=== PATIENT | male | born 1960 | race Caucasian/White ===

== ENCOUNTER 2017-11-04 13:06 | Day surgery (SDC) | payer OTHER, MEDICARE ==
[~2017-11-04] VITALS: Ht 180.3 cm; Wt 118.0 kg
[2017-11-04] MEDS ORDERED: IOHEXOL 350 MG/ML 50 ML BTL (for Cath Lab) OTHER ONE (13:07)
[2017-11-04 13:51] VITALS: BP 123/68; PULSE 68; RESP 16; TEMP 98.1; O2SAT 97
[2017-11-04] MEDS ORDERED: SODIUM BICARBONATE 100 MEQ in D5W 1000 ML IV SCH (14:15)
[2017-11-04] MEDS ORDERED: METO50TA PO (14:22)
[2017-11-04] MEDS ORDERED: PLAV75TA29 PO (14:22)
[2017-11-04] MEDS ORDERED: STATIN PO (14:22)
[2017-11-04] MEDS ORDERED: ASPI-516 CHEW (14:22)
[2017-11-04] MEDS ORDERED: HYDR-3583 PO (14:22)
[2017-11-04] MEDS ORDERED: CLON1TAB PO (14:22)
[2017-11-04 14:27] LABS: CREATININE 1.29 MG/DL (0.60-1.30)
[2017-11-04] MEDS ORDERED: HEPARIN-NS/PF FLUSH BAG 1,000 ML IV FLUSH ONE (15:49)
--- NOTE | 2017-11-04 15:50 | HHI.HP ---
History of Present Illness Chief Complaint: L LE tissue loss History of Present Illness 57 yo male with failed stents and now failed L LE bypass, has tissue loss and likely needs amputation Past/Family/Social History Past Medical History HTN XOL PAD Past Surgical History L LE bypass Social History former smoker Family History NC Home Medications Reported Medications Clonazepam (Clonazepam) 1 Mg Tab, PO HS, #60 TAB 0 Refills 11/04/17 Clopidogrel (Plavix) 75 Mg Tab, 75 MG PO DAILY for Blood Clot Prevention, #30 TAB 0 Refills 11/04/17 Aspirin (Aspirin) 81 Mg Chew, 81 MG CHEW DAILY, TAB 0 Refills 11/04/17 [Statin] No Conflict Check, PO HS 11/04/17 Hydrocodone-Acetaminophen (Hydrocodone-Acetaminophen) 10-325 mg Tab, 1 TAB PO Q6H Y for PAIN, TAB 0 Refills 11/04/17 Metoprolol Tartrate (Metoprolol Tartrate) 50 Mg Tab, 25 MG PO BID, #60 TAB 0 Refills 11/04/17 Coded Allergies: No Known Allergies (Unverified , 11/04/17) Review of Systems Constitutional: DENIES: Diaphoretic episodes, Fatigue, Fever, Weight gain, Weight loss, Chills, Dizziness, Change in appetite, Night Sweats Physical Exam Vitals/I&O Date Time Temp Pulse Resp B/P (MAP) Pulse Ox O2 Delivery O2 Flow Rate FiO2 11/04/17 13:51 98.1 68 16 123/68 (86) 97 Neuro: alert, no distress HEENT: NC/AT Neck: no JVD Heart: reg rate Lungs: clear B Vascular: nonpalpable L pedal pulses Extremities: wounds L LE Laboratory Tests Test 11/04/17 13:50 Creatinine 1.29 Estimat Glomerular Filtration Rate 57 Caprini VTE Risk Assessment Caprini VTE Risk Assessment: No/Low Risk (score <= 1) Caprini Risk Assessment Model Point Value = 1 Point Value = 2 Point Value = 3 Point Value = 5 Age 41-60 Minor surgery BMI > 25 kg/m2 Swollen legs Varicose veins or History of unexplained or recurrent spontaneous Oral contraceptives or hormone replacement Sepsis (< 1 month) Serious lung disease, including pneumonia (< 1 month) Abnormal pulmonary function Acute myocardial infarction Congestive heart failure (< 1 month) History of inflammatory bowel disease Medical patient at bed rest Age 61-74 Arthroscopic surgery Major open surgery (> 45 min) Laparoscopic surgery (> 45 min) Malignancy Confined to bed (> 72 hours) Immobilizing plaster cast Central venous access Age >= 75 History of VTE Family history of VTE Factor V Leiden Prothrombin 55960E Lupus anticoagulant Anticardiolipin antibodies Elevated serum homocysteine Heparin-induced thrombocytopenia Other congenital or acquired thrombophilia Stroke (< 1 month) Elective arthroplasty Hip, pelvis, or leg fracture Acute spinal cord injury (< 1 month) Prophylaxis Regimen Total Risk Factor Score Risk Level Prophylaxis Regimen 0-1 Low Early ambulation 2 Moderate Order ONE of the following: *Sequential Compression Device (SCD) *Heparin 5000 units SQ BID 3-4 Higher Order ONE of the following medications: *Heparin 5000 units SQ TID *Enoxaparin/Lovenox 40 mg SQ daily (WT < 150 kg, CrCl > 30 mL/min) *Enoxaparin/Lovenox 30 mg SQ daily (WT < 150 kg, CrCl > 10-29 mL/min) *Enoxaparin/Lovenox 30 mg SQ BID (WT < 150 kg, CrCl > 30 mL/min) AND/OR *Sequential Compression Device (SCD) 5 or more Highest Order ONE of the following medications: *Heparin 5000 units SQ TID (Preferred with Epidurals) *Enoxaparin/Lovenox 40 mg SQ daily (WT < 150 kg, CrCl > 30 mL/min) *Enoxaparin/Lovenox 30 mg SQ daily (WT < 150 kg, CrCl > 10-29 mL/min) *Enoxaparin/Lovenox 30 mg SQ BID (WT < 150 kg, CrCl > 30 mL/min) AND *Sequential Compression Device (SCD) Assessment and Plan Plan L LE angiogram anticipate d/c today Ruperto Quintanilla MD Nov 04, 2017 15:50
[2017-11-04] MEDS ORDERED: MIDAZOLAM HCL 2 MG/2 ML VIAL ONE ×3 (15:52→16:15)
--- NOTE | 2017-11-04 16:26 | HHI.PR ---
cc: Ruperto Quintanilla MD Immediate Post Op Note Procedure Date: Nov 04, 2017 Pre Op Diagnosis: L LE tissue loss, PAD Post Op Diagnosis: same Surgeon: Ruperto Quintanilla Household Refrigeration Mechanic(s): none Procedure: L LE angiogram Findings: occluded bypass patent profunda Complications: none Specimen(s) removed: none Estimated blood loss: 10mL Anesthesia: MAC Drains: None Patient to: Other (DOCU) Patient Condition: Good Date/Time of Procedure: SEE SURGICAL CARE RECORD Ruperto Quintanilla MD Nov 04, 2017 16:25
--- NOTE | 2017-11-04 16:33 | CATHPROC ---
[employer] HIS Report Study Information Study Number Admission Scheduled Start Study Start [id number] Nov 04 2017 1:06PM 11/04/2017 Nov 04 2017 3:46PM [place] [facility] Cath Endovascular Study Admit Source Facility Department Other [facility] - Class B Truck Driver Physician and Clinical Staff Initial Ruperto Hodges Emergency Services Professional Hank Capellan,RN Recorder David Beth,RT(R) ScrRadha BushRT(R) (BS) Equipment Time Envelope Stamping Machine Operator Description Size Mfg Part Number Used/Scraped [id number] 15:58 ANGIO-DYNAMICS OMNI FLUSH 65CM CATHETER FR 4 Used *[id number] INTRODUCER SET, 15:58 [employer] FR 5 [id number] *[id number] Used MICROPUNCTURE, STIFFENED [id number] 15:58 K[employer] PACK, CCL CUSTOM * Used *[id number] 15:58 [employer] MEDICAL PRESSURE TUBING 48" 48" [id number] Used [id number] 15:58 NAMIC TUBING, HIGH PRESSURE 20" 20" Used *[id number] TUBING, PRESSURE INJECTION [id number] 15:58 NAMIC PACER 72" Used 72" *[id number] 15:58 NYCOMED OMNIPAQUE, 300 MG, 150ML 150ML [id number] Used 15:58 NYCOMED OMNIPAQUE, 300 MG, 50ML 50ML [id number] Used [id number] 15:58 [employer] BLANKET,WARM AIR CCL * Used *[id number] 15:58 TERUMO MEDICAL SHEATH, FR4 TERUMO (10CM) FR 4 Used *[id number] 15:58 [employer] MEDICAL SHEATH, FR4 TERUMO (10CM) FR 4 Used *[id number] WIRE, ANGLED GLIDE .035 [id number] 15:58 TERUMO MEDICAL/ASHLYN 260CM Used 260CM *[id number] Labs Creatinine (mg/dl) 0.50-1.30 1.2 Medication Medication Total Dose (Bolus/Oral) Medication Total Dosage/Unit 1% XYLOCAINE 50 mL FENTANYL 200 mcg VERSED 5 mg Medications (Bolus/Oral) Medication Time Given Dosage/Unit Administered By Reason VERSED 11/04/2017 3:58:54 PM 1 mg Hank Capellan 1 mg VERSED given in lab by Hank Capellan, RN via Peripheral IV. Ordered by Ruperto Quintanilla. FENTANYL 11/04/2017 3:59:24 PM 50 mcg Ferlitto, Hank 50 mcg FENTANYL given in lab by Hank Capellan RN via Peripheral IV. Ordered by Ruperto Quintanilla. 1% XYLOCAINE 11/04/2017 4:00:45 PM 20 mL Ruperto Quintanilla 20 mL 1% XYLOCAINE given in lab by Ruperto Quintanilla in Right Groin via Subcutaneous. Ordered by Ruperto Quintanilla. VERSED 11/04/2017 4:02:24 PM 1 mg Ferlitto, Hank 1 mg VERSED given in lab by Hank Capellan RN via Peripheral IV. Ordered by Ruperto Quintanilla. FENTANYL 11/04/2017 4:03:20 PM 50 mcg Ferlitto, Hank 50 mcg FENTANYL given in lab by Hank Capellan RN via Peripheral IV. Ordered by Ruperto Quintanilla. VERSED 11/04/2017 4:07:41 PM 1 mg Ferlitto, Hank 1 mg VERSED given in lab by Hank Capellan RN via Peripheral IV. Ordered by Ruperto Quintanilla. 1% XYLOCAINE 11/04/2017 4:08:25 PM 10 mL Ruperto Quintanilla 10 mL 1% XYLOCAINE given in lab by Ruperto Quintanilla in Right Groin via Subcutaneous. Ordered by Ruperto Quintanilla. VERSED 11/04/2017 4:10:23 PM 1 mg Ferlitto, Hank 1 mg VERSED given in lab by Hank Capellan RN via Peripheral IV. Ordered by Ruperto Quintanilla. 1% XYLOCAINE 11/04/2017 4:10:48 PM 20 mL Ruperto Quintanilla 20 mL 1% XYLOCAINE given in lab by Ruperto Quintanilla in Left Groin via Subcutaneous. Ordered by Ruperto Quintanilla. FENTANYL 11/04/2017 4:11:35 PM 50 mcg Ferlitto, Hank 50 mcg FENTANYL given in lab by Hank Capellan RN via Peripheral IV. Ordered by Ruperto Quintanilla. FENTANYL 11/04/2017 4:15:34 PM 50 mcg Ferlitto, Hank 50 mcg FENTANYL given in lab by Hank Capellan RN via Peripheral IV. Ordered by Ruperto Quintanilla. VERSED 11/04/2017 4:16:10 PM 1 mg Hank Capellan 1 mg VERSED given in lab by Hank Capellan, RN via Peripheral IV. Ordered by Ruperto Quintanilla. Medication (Drip) Medication Time Given Dosage/Unit Concentration/Unit Diluent (ml) Solution IV Solutions 11/04/2017 3:56:19 PM 0 mL (IV) 500 NaCl .9 Patient arrived on IV Solutions given by Ruperto Quintanilla in Left Antecubital via Peripheral IV. Pump/D rip Flow = 20 ml/hr using NaCl .9. Ordered by Ruperto Quintanilla. Initial Case Assessment Cardiovascular HR Rhythm NIBP Chest Pain 86 sr 139/86 0 Edema Present Skin color Skin None Normal Warm Dry Circulatory - Right Pulses Femoral 1 Scale (0,1,2,3,4,d) Circulatory - Left Pulses Femoral 1 Scale (0,1,2,3,4,d) Neurological State Oriented to time-place- Alert Moves all extremities person Respiration - General Respiration Rate SpO2 (%) O2 (lpm) (B/min) 18 99 0 Chronological Log Time Study Chronological Log 15:45:48 Patient arrived via Bed. 15:45:49 Patient Name, D.O.B, / Armband Verified By R.N. 15:45:50 Consent signed by the physician and the patient and verified by the Class B Truck Driver staff. 15:45:52 Pre-op and post- op instructions given; patient acknowledges understanding of instructions. 15:49:28 Reference ECG taken Vitals capture started with the following parameters, Patient=Adult, Interval=5 min, Initial Pr qahlav=829 mmHg, 15:53:23 Deflation Rate=5 mmHg, Cuff placed on Right Ankle 15:54:01 HR=65 bpm, TABH=234/86 mmhg, JeL7=161.0 %, Resp=9 B/min, Marcano=2 15:54:26 Reference ECG taken 15:55:26 Presedation assessment performed by Class B Truck Driver RN. 15:55:34 Patient has been NPO for More than 6Hrs. 15:56:06 A # 20 IV was noted in the Hand (left). Grade = 0 Patient arrived on IV Solutions given by Ruperto Quintanilla in Left Antecubital via Peripheral IV. Pump/Drip Flow = 20 ml/hr 15:56:19 using NaCl .9. Ordered by Ruperto Quintanilla. 15:56:35 History and physical on the chart or being dictated. Assessment: Initial Case, HR=86 BPM, Rhythm=sr, VLHS=707/86 mmhg, Chest Pain=0, Edema=None, Col or=Normal, Skin = Warm, Dry Right Pulses: Femoral=1 15:56:39 Left Pulses: Femoral=1 Neurological: State=Alert, Ox3, IRBY Respiration: Resp=18 B/min, SpO2=99 %, O2=0 lpm 15:57:11 Bilateral groins prepped with 2% chlorhexidine, and draped after a 3 minute waiting time. 15:58:54 1 mg VERSED given in lab by Hank Capellan RN via Peripheral IV. Ordered by Ruperto Quintanilla . 15:59:02 HR=66 bpm, QNLL=622/80 mmhg, VlG4=988.0 %, Resp=8 B/min, Marcano=2 15:59:24 50 mcg FENTANYL given in lab by Hank Capellan RN via Peripheral IV. Ordered by Randi Quintanilla. Time Out. Correct patient, correct procedure, correct physician, power injector loaded with con trast with surgical team 15:59:45 present. Time Out Concurred by MD and individual staff in procedure. Loaded by Hank leiva rn, verified by Radha Nevarez. 16:00:12 Case Start 16:00:15 Verbal Stimulation=2 Physical Stimulation=2 Airway=2 Respiration=2 TOTAL=8. (0=absent, 1=li mited, 2=present) 16:00:45 20 mL 1% XYLOCAINE given in lab by Ruperto Quintanilla in Right Groin via Subcutaneous. Ordered by Ruperto Quintanilla. 16:02:24 1 mg VERSED given in lab by Hank Capellan RN via Peripheral IV. Ordered by Ruperto Quintanilla . 16:03:20 50 mcg FENTANYL given in lab by Hank Capellan RN via Peripheral IV. Ordered by Randi Quintanilla. 16:04:04 HR=68 bpm, YYWV=904/77 mmhg, SpO2=97.0 %, Resp=9 B/min, Marcano=2 16:07:11 Access site was Right Femoral Artery. A INTRODUCER SET, MICROPUNCTURE, STIFFENED FR 5 was advanced into the Fem Art (right) using the 16:07:17 Percutaneous technique. 16:07:41 1 mg VERSED given in lab by Hank Capellan RN via Peripheral IV. Ordered by Ruperto Quintanilla . 16:08:10 Access failed. Holding pressure. 16:08:25 10 mL 1% XYLOCAINE given in lab by Ruperto Quintanilla in Right Groin via Subcutaneous. Ordered by Ruperto Quintanilla. 16:08:58 HR=75 bpm, RLVR=408/81 mmhg, SpO2=97.0 %, Resp=12 B/min, Marcano=2 16:10:23 1 mg VERSED given in lab by Hank Capellan RN via Peripheral IV. Ordered by Ruperto Quintanilla . 16:10:48 20 mL 1% XYLOCAINE given in lab by Ruperto Quintanilla in Left Groin via Subcutaneous. Ordered Ruperto Bean. 16:11:35 50 mcg FENTANYL given in lab by Hank Capellan RN via Peripheral IV. Ordered by Randi Quintanilla. 16:14:02 HR=71 bpm, CNDI=357/73 mmhg, SpO2=97.0 %, Resp=11 B/min, Marcano=2 16:15:34 50 mcg FENTANYL given in lab by Hank Capellan RN via Peripheral IV. Ordered by Randi Quintanilla. 16:15:54 Access site was Left Femoral Artery. A INTRODUCER SET, MICROPUNCTURE, STIFFENED FR 5 was advanced into the Fem Art (left) using the Percutaneous 16:16:00 technique. 16:16:10 1 mg VERSED given in lab by Hank Capellan RN via Peripheral IV. Ordered by Ruperto Quintanilla . 16:19:03 HR=70 bpm, MULB=561/77 mmhg, SpO2=94.0 %, Resp=19 B/min, Marcano=2 16:20:15 Manual injections down left leg through micro puncture sheath in left fem art. 16:21:44 Case End 16:21:47 Sheath removed; pressure applied to access site. 16:24:04 HR=68 bpm, MMIS=130/70 mmhg, SpO2=94.0 %, Resp=20 B/min, Marcano=2 16:29:05 HR=70 bpm, CJFH=109/69 mmhg, SpO2=95.0 %, Resp=17 B/min, Marcano=2 16:29:55 Patient moved to stretcher 16:29:58 Vitals capture stopped. 16:33:18 Patient moved to stretcher End Study - Contrast Media Used In Study Contrast Total Opened (mL) Total Used (mL) Total Wasted (mL) Omnipaque 20 20 0 End Study - Maximum Contrast Load Max Contrast Load (mL) 491.7 End Study - Radiation Exposure Fluoro Time (minutes) 6.0 End Study - Patient Disposition Complications Transferred To Telemetry Bed
--- NOTE | 2017-11-05 06:25 | MP ---
cc: Ruperto Quintanilla MD DATE OF OPERATION: 11/04/2017 PREOPERATIVE DIAGNOSIS: Left lower extremity tissue loss, unreconstructable disease. POSTOPERATIVE DIAGNOSIS: Left lower extremity tissue loss, unreconstructable disease. PROCEDURE: Left lower extremity angiogram. ATTENDING SURGEON: Ruperto Quintanilla MD ANESTHESIA: Local with sedation. INDICATION: Mr. Garcia is a 57-year-old gentleman with a previous failed endovascular revascularization and a left groin reconstruction and distal bypass. He presented with significant tissue loss and presents for angiographic evaluation and potential treatment. There is no prior ____ presumed occlusion of his bypass. DESCRIPTION OF PROCEDURE: Informed consent was obtained from the patient. He was taken to the operating room, placed supine on the operating room table, and appropriate timeout was taken to assure the patient's identity, operative site, and planned procedure. The administration of antibiotics was not necessary, as this was a clean procedure without planned implantation of any foreign object. Everyone in the room agreed with the timeout, and we proceeded. His bilateral groins were prepped and draped, and the left groin was anesthetized with 1% Lidocaine. A 21-gauge micropuncture needle was used to access the left common femoral artery. This was exchanged using Seldinger technique for a micropuncture sheath, through which a left lower extremity arteriogram was obtained. The micropuncture sheath was removed and pressure was held for hemostasis. There were no complications. I was present and scrubbed for the entire procedure. DESCRIPTION OF IMAGES: The patient has patent left external iliac artery stents, patent common femoral artery and profunda. There appears to a patch on the profunda. The SFA is occluded. The previous fem-peroneal bypass is occluded. The popliteal artery is occluded, and then profunda-based collaterals reconstitute what appears to be a peroneal artery in the mid-calf. There is reasonable opacification down the mid to distal calf, but only in the form of a peroneal artery. Ruperto Quintanilla MD RJF/SM , 05:32 AM , 06:25 AM
== END 2017-11-04 18:35 | disposition home or self-care (01) ==
LOC: HDOC 13:06 → HDIC 13:07 → HDOC 18:35
PROVIDERS: ATTEND Surgery
DX: T82.858A Stenosis of other vascular prosthetic devices, implants and grafts, initial encounter (principal); R23.4 Changes in skin texture; I73.9 Peripheral vascular disease, unspecified; I10 Essential (primary) hypertension
CPT/HCPCS: 36140; 75710; 82565; J1644; J2250; J3010; J7070; Q9967

== ENCOUNTER 2017-11-18 10:44 | Inpatient (IN) | payer OTHER, MEDICARE ==
[~2017-11-18] VITALS: Ht 180.3 cm; Wt 102.5 kg
[~2017-11-18 10:44] MED LIST: ALFU10TA2 PO; ASPI-516 CHEW; ATOR80TA45 PO; CILO50TA PO; CLON1TAB PO; GABA800T PO; HYDR-3583 PO; METO50TA PO; OMEP20TA93 PO; PLAV75TA29 PO
[2017-11-18] MEDS ORDERED: POVIDONE IODINE 5% (ANTISEPSIS KIT) 4 APPLICATIONS EACH NARE PRN (11:15)
[2017-11-18] MEDS ORDERED: CHLORHEXIDINE GLUCONATE 2 % 1 PACK (2 CLOTHS) TOPICAL PRN (11:15)
[2017-11-18] MEDS ORDERED: LACTATED RINGER'S 1000 ML IV PRN (11:15)
[2017-11-18] MEDS ORDERED: INSULIN HUMAN REGULAR 1,000 UNITS/10 ML VIAL SQ PRN (11:15)
[2017-11-18] MEDS ORDERED: SODIUM CHLORID 0.9% 500 ML IV PRN (11:15)
[2017-11-18] MEDS ORDERED: METOPROLOL TARTRATE 25 MG TAB PO PRN (11:15)
[2017-11-18] MEDS ORDERED: PHENYLEPH/NS 1000 MCG/10 ML SYR IV ONE (12:00)
[2017-11-18] MEDS ORDERED: ONDANSETRON HCL 4 MG/2 ML VIAL IV ONE (12:00)
[2017-11-18] MEDS ORDERED: LIDOCAINE HCL 1% PF 5 ML SYRINGE OTHER ONE (12:00)
[2017-11-18] MEDS ORDERED: PROPOFOL 200 MG/20 ML AMP IV ONE (12:00)
[2017-11-18] MEDS ORDERED: GLYCOPYRROLATE 1 MG/5 ML SYRINGE IV PUSH ONE (12:00)
[2017-11-18] MEDS ORDERED: DEXAMETHASONE SOD PHOS 4 MG/ML VIAL IV ONE (12:00)
[2017-11-18] MEDS ORDERED: ePHEDrine/NS 25 MG/5 ML SYRINGE IV ONE (12:00)
[2017-11-18 12:12] LABS: AUTOMATED NEUTROPHIL # 5.6 TH/MM3 (1.8-7.7); BASOPHIL # 0.1 TH/MM3 (0-0.2); BASOPHIL % 0.8 % (0.0-2.0); EOSINOPHIL # 0.2 TH/MM3 (0-0.4); EOSINOPHIL % 2.2 % (0.0-4.0); HEMATOCRIT 38.5 % (39.0-51.0); HEMOGLOBIN 13.1 GM/DL (13.0-17.0); LYMPH % 19.3 % (9.0-44.0); LYMPHOCYTE # 1.5 TH/MM3 (1.0-4.8); MEAN CELL VOLUME 93.6 FL (80.0-100.0); MEAN CORPUSCULAR HEMOGLOBIN 31.8 PG (27.0-34.0); MONO % 7.6 % (0.0-8.0); MONOCYTE # 0.6 TH/MM3 (0-0.9); NEUT % 70.1 % (16.0-70.0); PLATELET COUNT 255 TH/MM3 (150-450); RED BLOOD COUNT 4.12 MIL/MM3 (4.50-5.90); RED CELL DISTRIBUTION WIDTH 13.7 % (11.6-17.2); WHITE BLOOD COUNT 7.9 TH/MM3 (4.0-11.0)
[2017-11-18 12:18] LABS: PROTHROMBIN TIME - PATIENT 10.3 SEC (9.8-11.6)
[2017-11-18 12:27] LABS: BICARBONATE 23.1 MEQ/L (21.0-32.0); CALCIUM 9.7 MG/DL (8.5-10.1); CREATININE 1.13 MG/DL (0.60-1.30)
--- NOTE | 2017-11-18 14:13 | PD.CAR.PN ---
CVT Progress Note Subjective/Hospital Course: 57-year-old gentleman with a lifetime of smoking history presented to an outside interventionalist several years ago and underwent a series of stents down his left leg. After it was quite obvious that this was not the way to go, patient presented to Dr. Quintanilla who performed a successful distal bypass. Patient now has some gangrenous changes on his toes and dorsum of the foot. Clearly despite the revascularization patient has degree of small vessel disease and occlusive changes that do not support the viability of the tissues I completely agree with left below-knee amputation. This will allow patient to recover, get the functional prosthesis in the reintegrate into regular activities. Thanks J Objective: Vital Signs Date Time Temp Pulse Resp B/P (MAP) Pulse Ox O2 Delivery O2 Flow Rate FiO2 11/18/17 11:15 98.3 82 20 163/97 (119) 97 Labs: Laboratory Tests Test 11/18/17 11:20 11/18/17 11:35 Blood Urea Nitrogen 13 MG/DL (7-18) Creatinine 1.13 MG/DL (0.60-1.30) Random Glucose 111 MG/DL (74-106) Calcium Level 9.7 MG/DL (8.5-10.1) Sodium Level 136 MEQ/L (136-145) Potassium Level 4.2 MEQ/L (3.5-5.1) Chloride Level 101 MEQ/L (98-107) Carbon Dioxide Level 23.1 MEQ/L (21.0-32.0) Anion Gap 12 MEQ/L (5-15) Estimat Glomerular Filtration Rate 67 ML/MIN (>89) White Blood Count 7.9 TH/MM3 (4.0-11.0) Red Blood Count 4.12 MIL/MM3 (4.50-5.90) Hemoglobin 13.1 GM/DL (13.0-17.0) Hematocrit 38.5 % (39.0-51.0) Mean Corpuscular Volume 93.6 FL (80.0-100.0) Mean Corpuscular Hemoglobin 31.8 PG (27.0-34.0) Mean Corpuscular Hemoglobin Concent 34.0 % (32.0-36.0) Red Cell Distribution Width 13.7 % (11.6-17.2) Platelet Count 255 TH/MM3 (150-450) Mean Platelet Volume 8.0 FL (7.0-11.0) Neutrophils (%) (Auto) 70.1 % (16.0-70.0) Lymphocytes (%) (Auto) 19.3 % (9.0-44.0) Monocytes (%) (Auto) 7.6 % (0.0-8.0) Eosinophils (%) (Auto) 2.2 % (0.0-4.0) Basophils (%) (Auto) 0.8 % (0.0-2.0) Neutrophils # (Auto) 5.6 TH/MM3 (1.8-7.7) Lymphocytes # (Auto) 1.5 TH/MM3 (1.0-4.8) Monocytes # (Auto) 0.6 TH/MM3 (0-0.9) Eosinophils # (Auto) 0.2 TH/MM3 (0-0.4) Basophils # (Auto) 0.1 TH/MM3 (0-0.2) CBC Comment DIFF FINAL Differential Comment Prothrombin Time 10.3 SEC (9.8-11.6) Prothromb Time International Ratio 1.0 RATIO Result Diagram: 11/18/17 1135 11/18/17 1120 Kati Duran MD Nov 18, 2017 14:13
--- NOTE | 2017-11-18 14:29 | HHI.HP ---
History of Present Illness Chief Complaint: L LE tissue loss, PAD History of Present Illness 58 yo male with L LE stents and then bypass, failed. no bypass options. Ready for BKA Past/Family/Social History Past Medical History HTN PAD XOL OLIVIA COPD renal calculi Past Surgical History appy LLE bypass ortho surgeries back surgery Social History ex smoker Family History NC Home Medications Reported Medications Atorvastatin (Atorvastatin) 80 Mg Tab, 80 MG PO HS for Cholesterol Management, # 30 TAB 0 Refills 11/17/17 Alfuzosin ER 24 HR (Alfuzosin ER 24 HR) 10 Mg Tab, 10 MG PO DAILY for BPH, #30 TAB 0 Refills 11/17/17 Cilostazol (Cilostazol) 50 Mg Tab, 50 MG PO BID for INTERMITTENT CLAUDICATION, TAB 0 Refills 11/17/17 Omeprazole (Omeprazole) 20 Mg Tab, 20 MG PO DAILY, #30 TAB 0 Refills 11/17/17 Gabapentin (Gabapentin) 800 Mg Tab, 800 MG PO TID, #90 TAB 0 Refills 11/17/17 Clonazepam (Clonazepam) 1 Mg Tab, 1 MG PO HS, #60 TAB 0 Refills 11/04/17 Clopidogrel (Plavix) 75 Mg Tab, 75 MG PO DAILY for Blood Clot Prevention, #30 TAB 0 Refills 11/04/17 Aspirin (Aspirin) 81 Mg Chew, 81 MG CHEW DAILY, TAB 0 Refills 11/04/17 Hydrocodone-Acetaminophen (Hydrocodone-Acetaminophen) 10-325 mg Tab, 1 TAB PO Q6H Y for PAIN, TAB 0 Refills 11/04/17 Metoprolol Tartrate (Metoprolol Tartrate) 50 Mg Tab, 25 MG PO BID, #60 TAB 0 Refills 11/04/17 Discontinued Reported Medications [Statin] No Conflict Check, PO HS 11/04/17 Coded Allergies: No Known Allergies (Unverified , 11/18/17) Review of Systems Constitutional: DENIES: Diaphoretic episodes, Fatigue, Fever, Weight gain, Weight loss, Chills, Dizziness, Change in appetite, Night Sweats Endocrine: DENIES: Heat/cold intolerance, Polydipsia, Polyuria, Polyphagia Physical Exam Vitals/I&O Date Time Temp Pulse Resp B/P (MAP) Pulse Ox O2 Delivery O2 Flow Rate FiO2 11/18/17 11:15 98.3 82 20 163/97 (119) 97 Neuro: alert, oriented, no distress HEENT: NC/AT Neck: no JVD Heart: reg rate Lungs: clear Vascular: L LE tissue loss Laboratory Tests Test 11/18/17 11:20 11/18/17 11:35 Blood Urea Nitrogen 13 Creatinine 1.13 Random Glucose 111 Calcium Level 9.7 Sodium Level 136 Potassium Level 4.2 Chloride Level 101 Carbon Dioxide Level 23.1 Anion Gap 12 Estimat Glomerular Filtration Rate 67 White Blood Count 7.9 Red Blood Count 4.12 Hemoglobin 13.1 Hematocrit 38.5 Mean Corpuscular Volume 93.6 Mean Corpuscular Hemoglobin 31.8 Mean Corpuscular Hemoglobin Concent 34.0 Red Cell Distribution Width 13.7 Platelet Count 255 Mean Platelet Volume 8.0 Neutrophils (%) (Auto) 70.1 Lymphocytes (%) (Auto) 19.3 Monocytes (%) (Auto) 7.6 Eosinophils (%) (Auto) 2.2 Basophils (%) (Auto) 0.8 Neutrophils # (Auto) 5.6 Lymphocytes # (Auto) 1.5 Monocytes # (Auto) 0.6 Eosinophils # (Auto) 0.2 Basophils # (Auto) 0.1 CBC Comment DIFF FINAL Differential Comment Prothrombin Time 10.3 Prothromb Time International Ratio 1.0 Caprini VTE Risk Assessment Caprini VTE Risk Assessment: No/Low Risk (score <= 1) Caprini Risk Assessment Model Point Value = 1 Point Value = 2 Point Value = 3 Point Value = 5 Age 41-60 Minor surgery BMI > 25 kg/m2 Swollen legs Varicose veins or History of unexplained or recurrent spontaneous Oral contraceptives or hormone replacement Sepsis (< 1 month) Serious lung disease, including pneumonia (< 1 month) Abnormal pulmonary function Acute myocardial infarction Congestive heart failure (< 1 month) History of inflammatory bowel disease Medical patient at bed rest Age 61-74 Arthroscopic surgery Major open surgery (> 45 min) Laparoscopic surgery (> 45 min) Malignancy Confined to bed (> 72 hours) Immobilizing plaster cast Central venous access Age >= 75 History of VTE Family history of VTE Factor V Leiden Prothrombin 43846I Lupus anticoagulant Anticardiolipin antibodies Elevated serum homocysteine Heparin-induced thrombocytopenia Other congenital or acquired thrombophilia Stroke (< 1 month) Elective arthroplasty Hip, pelvis, or leg fracture Acute spinal cord injury (< 1 month) Prophylaxis Regimen Total Risk Factor Score Risk Level Prophylaxis Regimen 0-1 Low Early ambulation 2 Moderate Order ONE of the following: *Sequential Compression Device (SCD) *Heparin 5000 units SQ BID 3-4 Higher Order ONE of the following medications: *Heparin 5000 units SQ TID *Enoxaparin/Lovenox 40 mg SQ daily (WT < 150 kg, CrCl > 30 mL/min) *Enoxaparin/Lovenox 30 mg SQ daily (WT < 150 kg, CrCl > 10-29 mL/min) *Enoxaparin/Lovenox 30 mg SQ BID (WT < 150 kg, CrCl > 30 mL/min) AND/OR *Sequential Compression Device (SCD) 5 or more Highest Order ONE of the following medications: *Heparin 5000 units SQ TID (Preferred with Epidurals) *Enoxaparin/Lovenox 40 mg SQ daily (WT < 150 kg, CrCl > 30 mL/min) *Enoxaparin/Lovenox 30 mg SQ daily (WT < 150 kg, CrCl > 10-29 mL/min) *Enoxaparin/Lovenox 30 mg SQ BID (WT < 150 kg, CrCl > 30 mL/min) AND *Sequential Compression Device (SCD) Assessment and Plan Plan L PAOLA Pt agrees Discharge Planning [phone] Ruperto Quintanilla MD Nov 18, 2017 14:29
[2017-11-18] MEDS ORDERED: THROMBIN (TOPICAL) 20,000 UNIT SPRAY KIT ONE (14:30)
[2017-11-18] MEDS ORDERED: ceFAZolin 2 GM PREMIX 50 ML ONE (14:30)
--- NOTE | 2017-11-18 14:38 | EKG ---
Date Performed: 11/18/2017 Time Performed: 12:01:40 PTAGE: 57 years EKG: Sinus rhythm WITH FREQUENT SUPRAVENTRICULAR PREMATURE COMPLEXES LOW QRS VOLTAGE IN PRECORDIAL LEADS ABNORMAL RHYT HM ECG NO PREVIOUS TRACING DOCTOR: Sahil Mendes Interpretating Date/Time 11/18/2017 14:37:36
[2017-11-18] MEDS ORDERED: FAMOTIDINE 20 MG/2 ML VIAL ONE (15:15)
[2017-11-18] MEDS ORDERED: ACETAMINOPHEN 1000 MG/100 ML 100 ML IV ONE (15:15)
[2017-11-18] MEDS ORDERED: KETAMINE HCL 500 MG/5 ML VIAL ONE (15:27)
[2017-11-18] MEDS: LACTATED RINGER'S 1000 ML INJ 1,000 ML IV SCH (16:44)
--- NOTE | 2017-11-18 16:44 | HHI.PR ---
cc: Ruperto Quintanilla MD Immediate Post Op Note Procedure Date: Nov 18, 2017 Pre Op Diagnosis: PAD, unreconstructable disease Post Op Diagnosis: PAD, unreconstructable disease Surgeon: Ruperto Quintanilla Valve Maker(s): Negro Girard Procedure: L BKA Findings: perfused tissue Complications: none Specimen(s) removed: LEFT LEG Estimated blood loss: 250mL Anesthesia: General Drains: None Fluids: 900mL IVF Patient to: PACU Patient Condition: Good Date/Time of Procedure: SEE SURGICAL CARE RECORD Ruperto Quintanilla MD Nov 18, 2017 16:44
[2017-11-18] MEDS ORDERED: BISACODYL 10 MG SUPP RECTAL PRN (16:45)
[2017-11-18] MEDS ORDERED: HYDROmorphone HCL PCA 6 MG/30 ML IV SCH (16:45)
[2017-11-18] MEDS ORDERED: LACTULOSE SYRUP 20 GM/30 ML CUP PO PRN (16:45)
[2017-11-18] MEDS ORDERED: NALOXONE HCL 0.4 MG/ML AMP IV PUSH PRN (16:45)
[2017-11-18] MEDS ORDERED: MAGNESIUM HYDROXIDE SUSP 30 ML CUP PO PRN (16:45)
[2017-11-18] MEDS ORDERED: SENNOSIDES 8.6 MG TAB PO PRN (16:45)
[2017-11-18] MEDS ORDERED: DO NOT ADM ANY ANTICOAGULANT DRUGS PRN (16:58)
[2017-11-18] MEDS ORDERED: MORPHINE SULFATE 4 MG/ML INJ ONE (17:08)
[2017-11-18] MEDS ORDERED: *LABETALOL HCL 100 MG/20 ML VIAL PERIprocedural Use ONLY ONE (17:33)
[2017-11-18] MEDS: GABAPENTIN 400 MG CAP PO SCH (18:00)
[2017-11-18] MEDS ORDERED: PILL SPLITTER OTHER PRN (20:45)
[2017-11-18 20:49] VITALS: BP 140/72; PULSE 79; RESP 20; TEMP 96.3; O2SAT 92
[2017-11-18] MEDS: FAMOTIDINE 20 MG TAB PO SCH (21:00)
[2017-11-18] MEDS: DOCUSATE SODIUM 50 MG/SENNA 8.6 MG TAB PO SCH (21:00)
[2017-11-18] MEDS: clonazePAM 1 MG TAB PO SCH (21:39)
[2017-11-18] MEDS: ATORVASTATIN 40 MG TAB PO SCH (21:39)
[2017-11-18] MEDS: METOPROLOL TARTRATE 50 MG TAB PO SCH (21:40)
[2017-11-18] MEDS: CILOSTAZOL 50 MG TAB PO SCH (21:41)
[2017-11-18] MEDS ORDERED: PCA - TOTAL MG DILAUDID DELIVERED PER SHIFT OTHER SCH (22:00)
[2017-11-19] VITALS: BP 168/87; PULSE 79; RESP 18; TEMP 96; O2SAT 92
[2017-11-19] MEDS: ACETAMINOPHEN/HYDROcodone 325 MG/10 MG TAB PO PRN (00:13)
[2017-11-19] MEDS: MORPHINE SULFATE 2 MG/ML INJ IV PRN ×4 (01:09→08:53)
[2017-11-19] MEDS ORDERED: LORazepam 2 MG/ML VIAL IV PRN (03:45)
[2017-11-19] MEDS ORDERED: MORPHINE SULFATE 2 MG/ML INJ IV SCH (03:45)
[2017-11-19 08:00] VITALS: BP 190/88; PULSE 93; RESP 18; TEMP 95.8; O2SAT 96
--- NOTE | 2017-11-19 08:40 | PD.VS.PN ---
Subjective POD #: 1 Procedure(s): L BKA Subjective/Hospital Course Pt c/o L LE pain this am Pt agitated Dressing to L LE I/C/D Objective Vitals/I&O Date Time Temp Pulse Resp B/P (MAP) Pulse Ox O2 Delivery O2 Flow Rate FiO2 11/19/17 00:00 96.0 79 18 168/87 (114) 92 11/18/17 21:43 20 11/18/17 20:49 96.3 79 20 140/72 (94) 92 11/18/17 19:00 97.0 72 13 147/71 (96) 96 Nasal Cannula 2 11/18/17 18:00 70 12 164/90 (114) 99 Nasal Cannula 2 11/18/17 17:45 72 12 162/89 (113) 99 Nasal Cannula 2 11/18/17 17:38 15 11/18/17 17:30 68 13 185/91 (122) 96 Nasal Cannula 2 11/18/17 17:15 70 12 172/90 (117) 98 Nasal Cannula 2 11/18/17 17:00 76 15 170/88 (115) 96 Nasal Cannula 2 11/18/17 16:57 97.1 84 20 156/93 (114) 98 Nasal Cannula 2 11/18/17 11:15 98.3 82 20 163/97 (119) 97 11/19/17 11/19/17 11/19/17 07:00 15:00 23:00 Intake Total 240 ml Output Total 775 ml Balance -535 ml Exam: GENERAL: 57/M A&OX3,NAD SKIN: LE Warm and dry L BKA dressing clean and dry intact with mild post operative swelling Deni wrap intact Laboratory Laboratory Tests Test 11/18/17 11:20 11/18/17 11:35 Blood Urea Nitrogen 13 Creatinine 1.13 Random Glucose 111 Calcium Level 9.7 Sodium Level 136 Potassium Level 4.2 Chloride Level 101 Carbon Dioxide Level 23.1 Anion Gap 12 Estimat Glomerular Filtration Rate 67 White Blood Count 7.9 Red Blood Count 4.12 Hemoglobin 13.1 Hematocrit 38.5 Mean Corpuscular Volume 93.6 Mean Corpuscular Hemoglobin 31.8 Mean Corpuscular Hemoglobin Concent 34.0 Red Cell Distribution Width 13.7 Platelet Count 255 Mean Platelet Volume 8.0 Neutrophils (%) (Auto) 70.1 Lymphocytes (%) (Auto) 19.3 Monocytes (%) (Auto) 7.6 Eosinophils (%) (Auto) 2.2 Basophils (%) (Auto) 0.8 Neutrophils # (Auto) 5.6 Lymphocytes # (Auto) 1.5 Monocytes # (Auto) 0.6 Eosinophils # (Auto) 0.2 Basophils # (Auto) 0.1 CBC Comment DIFF FINAL Differential Comment Prothrombin Time 10.3 Prothromb Time International Ratio 1.0 Assessment and Plan Plan Pt S/P L BKA POD 1 Pt c/o pain to L BKA site Plan Ordered Morphine RN OR LPN pump Ordered pain medications for break through pain/See orders Continue pain control Anita Regalado NP [facility] [phone] Discharge Planning [phone] Anita Regalado Nov 19, 2017 08:40
[2017-11-19] MEDS ORDERED: NALOXONE HCL 0.4 MG/ML AMP IV PUSH PRN (08:45)
[2017-11-19] MEDS: DOCUSATE SODIUM 50 MG/SENNA 8.6 MG TAB PO SCH ×2 (08:48→21:34)
[2017-11-19] MEDS: GABAPENTIN 400 MG CAP PO SCH ×3 (08:48→16:12)
[2017-11-19] MEDS: ASPIRIN 81 MG CHEW TAB PO SCH (08:48)
[2017-11-19] MEDS: PANTOPRAZOLE SOD 20 MG DELAYED RELEASE TAB PO SCH (08:49)
[2017-11-19] MEDS: CILOSTAZOL 50 MG TAB PO SCH ×2 (08:49→21:34)
[2017-11-19] MEDS: METOPROLOL TARTRATE 50 MG TAB PO SCH ×2 (08:49→21:35)
[2017-11-19] MEDS: CLOPIDOGREL 75 MG TAB PO SCH (08:50)
[2017-11-19] MEDS: FAMOTIDINE 20 MG TAB PO SCH ×2 (08:50→21:34)
[2017-11-19] MEDS: TAMSULOSIN HCL 0.4 MG CAP PO SCH (08:52)
[2017-11-19] MEDS ORDERED: ACETAMINOPHEN/HYDROcodone 325 MG/5 MG TAB PO ONE (09:00)
--- NOTE | 2017-11-19 10:08 | MP ---
cc: Ruperto Quintanilla MD DATE OF OPERATION: 11/18/2017 PREOPERATIVE DIAGNOSIS: Unreconstructable left lower extremity peripheral arterial occlusive disease. POSTOPERATIVE DIAGNOSIS: Unreconstructable left lower extremity peripheral arterial occlusive disease. PROCEDURE PERFORMED: Left lsdml-zoim-hcnnejugak amputation. ATTENDING SURGEON: Ruperto Quintanilla MD CLERICAL INVESTIGATOR SURGEON: Negro Girard MD ANESTHESIA: General. INDICATIONS FOR PROCEDURE: Mr. Garcia is a 57-year-old gentleman with left lower extremity unreconstructable disease and a profoundly ischemic foot. After a long discussion was had with the patient and a second consultation by surgeon, he was offered a left gdutn-wwyr-cibjeyffoc. DESCRIPTION OF PROCEDURE: Informed consent was obtained from the patient. He was taken to the operating room and placed supine on the operating table. An appropriate timeout was taken to ensure the patient's identity, operative site and planned procedure. The administration of 2 grams of Ancef was initiated prior to skin incision and will be discontinued after a single preoperative dose. Everyone in the room agreed with time out and we proceeded. His left leg was prepped and draped. An incision made a hand's breadth below the tibial tuberosity on the left leg, carried down through subcutaneous tissue with electrocautery. A long posterior flap was then made with a 10 blade, carried down to subcutaneous tissue with electrocautery. The tibia was transected a centimeter above the skin incision and the fibula was transected at the same level. The posterior muscle was divided and the leg was passed off the table. The fibula was then divided more proximally. An anterior border of the tibia was bevelled and sanded down with an electric saw. The wound was then irrigated, made hemostatic with sutures and electrocautery and the fascia was then reapproximated with 2-0 Polysorb interrupted sutures, as well as 3-0 Polysorb interrupted sutures. The skin was closed with jose alfredo. Sponge and needle counts were correct at the end of the case. I was present, scrubbed and performed the entire procedure. MD LUIS Brock/BRIAN , 07:25 PM , 07:41 PM
[2017-11-19] MEDS: MORPHINE SULFATE 30 MG/30 ML PCA IV SCH (10:48)
[2017-11-19] MEDS: PCA - TOTAL MG MORPHINE DELIVERED PER SHIFT SCH ×3 (10:56→21:35)
[2017-11-19 11:50] LABS: HEMATOCRIT 33.5 % (39.0-51.0); HEMOGLOBIN 11.5 GM/DL (13.0-17.0); MEAN CORPUSCULAR HEMOGLOBIN 31.7 PG (27.0-34.0); MEAN CORPUSCULAR HGB CONC 34.4 % (32.0-36.0); MEAN PLATELET VOLUME 7.9 FL (7.0-11.0); PLATELET COUNT 277 TH/MM3 (150-450); RED BLOOD COUNT 3.64 MIL/MM3 (4.50-5.90); RED CELL DISTRIBUTION WIDTH 13.6 % (11.6-17.2); WHITE BLOOD COUNT 15.7 TH/MM3 (4.0-11.0)
[2017-11-19 12:00] VITALS: BP 117/65; PULSE 66; RESP 16; TEMP 96.9; O2SAT 98
[2017-11-19 12:15] LABS: BICARBONATE 22.9 MEQ/L (21.0-32.0); CALCIUM 9.2 MG/DL (8.5-10.1); CREATININE 0.97 MG/DL (0.60-1.30)
[2017-11-19 16:00] VITALS: BP 114/64; PULSE 75; RESP 16; TEMP 97.2; O2SAT 90
[2017-11-19] MEDS: LACTATED RINGER'S 1000 ML INJ 1,000 ML IV SCH (16:13)
[2017-11-19] MEDS: ENOXAPARIN SODIUM 40 MG/0.4 ML SYRINGE SQ SCH (16:15)
[2017-11-19 20:00] VITALS: BP 110/59; PULSE 102; RESP 20; TEMP 97.4; O2SAT 95
[2017-11-19] MEDS: clonazePAM 1 MG TAB PO SCH (21:34)
[2017-11-19] MEDS: ATORVASTATIN 40 MG TAB PO SCH (21:34)
[2017-11-20] VITALS: BP 98/55; PULSE 79; RESP 20; TEMP 96.6; O2SAT 94
[2017-11-20] MEDS: MORPHINE SULFATE 30 MG/30 ML PCA IV SCH ×2 (03:01→21:10)
[2017-11-20 04:00] VITALS: BP 129/73; PULSE 85; RESP 20; TEMP 96.5; O2SAT 95
[2017-11-20] MEDS: PCA - TOTAL MG MORPHINE DELIVERED PER SHIFT SCH ×3 (05:02→21:04)
[2017-11-20 08:00] VITALS: BP 127/64; PULSE 86; RESP 20; TEMP 96.6; O2SAT 98
[2017-11-20] MEDS: GABAPENTIN 400 MG CAP PO SCH ×3 (09:00→16:06)
[2017-11-20] MEDS: FAMOTIDINE 20 MG TAB PO SCH ×2 (09:00→21:03)
[2017-11-20] MEDS: ASPIRIN 81 MG CHEW TAB PO SCH (09:00)
[2017-11-20] MEDS: CLOPIDOGREL 75 MG TAB PO SCH (09:01)
[2017-11-20] MEDS: CILOSTAZOL 50 MG TAB PO SCH ×2 (09:01→21:03)
[2017-11-20] MEDS: METOPROLOL TARTRATE 50 MG TAB PO SCH ×2 (09:01→21:03)
[2017-11-20] MEDS: PANTOPRAZOLE SOD 20 MG DELAYED RELEASE TAB PO SCH (09:01)
[2017-11-20] MEDS: DOCUSATE SODIUM 50 MG/SENNA 8.6 MG TAB PO SCH ×2 (09:01→21:03)
[2017-11-20] MEDS: TAMSULOSIN HCL 0.4 MG CAP PO SCH (09:02)
--- NOTE | 2017-11-20 09:19 | PD.VS.PN ---
Subjective POD #: 2 Procedure(s): L BKA Subjective/Hospital Course 57/M S/P L BKA Pain controlled Dressing to L LE I/C/D Objective Vitals/I&O Date Time Temp Pulse Resp B/P (MAP) Pulse Ox O2 Delivery O2 Flow Rate FiO2 11/20/17 08:00 96.6 86 20 127/64 (85) 98 11/20/17 05:02 18 11/20/17 04:00 96.5 85 20 129/73 (91) 95 11/20/17 03:58 16 11/20/17 03:01 16 11/20/17 00:00 96.6 79 20 98/55 (69) 94 11/19/17 21:35 18 11/19/17 21:21 21 11/19/17 20:00 97.4 102 20 110/59 (76) 95 11/19/17 16:00 97.2 75 16 114/64 (81) 90 11/19/17 14:00 16 11/19/17 12:00 96.9 66 16 117/65 (82) 98 11/19/17 10:56 18 11/19/17 10:53 18 11/19/17 10:48 18 11/20/17 11/20/17 11/20/17 07:00 15:00 23:00 Intake Total 360 ml Output Total 1100 ml Balance -740 ml Exam: GENERAL: 57/M A&OX3,NAD SKIN: LE Warm and dry L BKA dressing clean and dry intact with mild post operative swelling Deni wrap intact Laboratory Laboratory Tests Test 11/19/17 09:49 11/19/17 10:13 Blood Urea Nitrogen 15 Creatinine 0.97 Random Glucose 130 Calcium Level 9.2 Sodium Level 136 Potassium Level 3.8 Chloride Level 100 Carbon Dioxide Level 22.9 Anion Gap 13 Estimat Glomerular Filtration Rate 79 White Blood Count 15.7 Red Blood Count 3.64 Hemoglobin 11.5 Hematocrit 33.5 Mean Corpuscular Volume 92.0 Mean Corpuscular Hemoglobin 31.7 Mean Corpuscular Hemoglobin Concent 34.4 Red Cell Distribution Width 13.6 Platelet Count 277 Mean Platelet Volume 7.9 Assessment and Plan Plan Pt S/P L BKA POD 2 Pain controlled Pt in good spirits this am Plan Continue pain control Continue PT/OOB Anita Regalado [employer] [facility] [phone] Discharge Planning [phone] Anita Regalado Nov 20, 2017 09:19
[2017-11-20 12:00] VITALS: BP 121/64; PULSE 89; RESP 18; TEMP 96.9; O2SAT 93
[2017-11-20 16:00] VITALS: BP 122/66; PULSE 82; RESP 18; TEMP 96.7; O2SAT 98
[2017-11-20] MEDS: LACTATED RINGER'S 1000 ML INJ 1,000 ML IV SCH (16:07)
[2017-11-20] MEDS: ENOXAPARIN SODIUM 40 MG/0.4 ML SYRINGE SQ SCH (16:07)
[2017-11-20 20:00] VITALS: BP 123/66; PULSE 62; RESP 18; TEMP 96.2; O2SAT 94
[2017-11-20] MEDS: clonazePAM 1 MG TAB PO SCH (21:03)
[2017-11-20] MEDS: ATORVASTATIN 40 MG TAB PO SCH (21:03)
[2017-11-21 00:18] VITALS: BP 114/69; PULSE 90; RESP 20; TEMP 96.9; O2SAT 96
[2017-11-21 04:00] VITALS: BP 136/71; PULSE 75; RESP 18; TEMP 96.3; O2SAT 97
[2017-11-21] MEDS: PCA - TOTAL MG MORPHINE DELIVERED PER SHIFT SCH (05:44)
[2017-11-21 08:00] VITALS: BP 137/74; PULSE 89; RESP 18; TEMP 97; O2SAT 95
[2017-11-21] MEDS: PANTOPRAZOLE SOD 20 MG DELAYED RELEASE TAB PO SCH (09:00)
[2017-11-21] MEDS: DOCUSATE SODIUM 50 MG/SENNA 8.6 MG TAB PO SCH ×2 (09:00→21:00)
[2017-11-21] MEDS: METOPROLOL TARTRATE 50 MG TAB PO SCH ×2 (09:00→21:16)
[2017-11-21] MEDS: TAMSULOSIN HCL 0.4 MG CAP PO SCH (09:00)
[2017-11-21] MEDS: GABAPENTIN 400 MG CAP PO SCH ×3 (09:03→16:16)
[2017-11-21] MEDS: CLOPIDOGREL 75 MG TAB PO SCH (09:04)
[2017-11-21] MEDS: FAMOTIDINE 20 MG TAB PO SCH ×2 (09:04→21:15)
[2017-11-21] MEDS: CILOSTAZOL 50 MG TAB PO SCH ×2 (09:04→21:15)
[2017-11-21] MEDS: ASPIRIN 81 MG CHEW TAB PO SCH (09:04)
[2017-11-21] MEDS: ACETAMINOPHEN/HYDROcodone 325 MG/10 MG TAB PO PRN ×3 (09:08→22:37)
[2017-11-21 12:00] VITALS: BP 114/74; PULSE 99; RESP 20; TEMP 98.1; O2SAT 95
--- NOTE | 2017-11-21 12:02 | HHI.FF ---
Face to Face Verification Diagnosis: (1) Status post below knee amputation of left lower extremity Physical Therapy Order: Evaluate and Treat, Improve ambulation, Strength and gait training Instructions: Pt s/p L BKA Treat and evaluate Home Health Nursing Order: Medical education Signs/symptoms of disease process I have seen patient Gomez Garcia on 11/21/17. My clinical findings support the need for the requested home health care services because: Pt is medically clear for d/c. Pt will need and benefit from out pt PT/HHS for optimal post operative healing Ltd mobility - disease progression Deconditioned w/ increased weakness Need for psychosocial assistance High risk of falls I certify that my clinical findings support that this patient is homebound because: Pt is medically clear for d/c. Pt will need and benefit from out pt PT /HHS for optimal post operative healing Post-op weakness Unsteady gait/balance Anita Regalado Nov 21, 2017 12:02
--- NOTE | 2017-11-21 12:36 | PD.VS.PN ---
Subjective POD #: 3 Procedure(s): L BKA Subjective/Hospital Course dressing changed - pain controlled pt wants to go home alda po Objective Vitals/I&O Date Time Temp Pulse Resp B/P (MAP) Pulse Ox O2 Delivery O2 Flow Rate FiO2 11/21/17 08:00 97.0 89 18 137/74 (95) 95 11/21/17 05:44 18 11/21/17 04:00 96.3 75 18 136/71 (92) 97 11/21/17 00:18 96.9 90 20 114/69 (84) 96 11/20/17 21:10 18 11/20/17 21:04 18 11/20/17 20:00 96.2 62 18 123/66 (85) 94 11/20/17 16:00 96.7 82 18 122/66 (84) 98 11/20/17 14:00 16 11/21/17 11/21/17 11/21/17 07:00 15:00 23:00 Intake Total 550 ml Output Total 1000 ml Balance -450 ml Exam: L BKA stump warm, perfused. Minimal drainage Assessment and Plan Plan POD#3 BKA looks good DC REACTOR OPERATOR HL IVF Discharge Planning will discharge tomorrow (Sat) [phone] Ruperto Quintanilla MD Nov 21, 2017 12:36
[2017-11-21 16:00] VITALS: BP 158/81; PULSE 96; RESP 19; TEMP 98; O2SAT 98
[2017-11-21] MEDS: ENOXAPARIN SODIUM 40 MG/0.4 ML SYRINGE SQ SCH (16:00)
[2017-11-21 20:00] VITALS: BP 137/76; PULSE 112; RESP 20; TEMP 97.9; O2SAT 98
[2017-11-21] MEDS: clonazePAM 1 MG TAB PO SCH (21:15)
[2017-11-21] MEDS: ATORVASTATIN 40 MG TAB PO SCH (21:16)
[2017-11-22] VITALS: BP 122/59; PULSE 92; RESP 20; TEMP 97.2; O2SAT 96
[2017-11-22] MEDS: ACETAMINOPHEN/HYDROcodone 325 MG/10 MG TAB PO PRN ×2 (03:18→07:32)
[2017-11-22 08:00] VITALS: BP 110/71; PULSE 95; RESP 18; TEMP 97.6; O2SAT 96
[2017-11-22] MEDS ORDERED: TAMSULOSIN HCL 0.4 MG CAP PO SCH (09:00)
--- NOTE | 2017-11-22 09:08 | PD.VS.PN ---
Subjective POD #: 4 Procedure(s): L BKA Subjective/Hospital Course looks great pain controlled with po meds alda diet ready for d/c Objective Vitals/I&O Date Time Temp Pulse Resp B/P (MAP) Pulse Ox O2 Delivery O2 Flow Rate FiO2 11/22/17 08:00 97.6 95 18 110/71 (84) 96 11/22/17 00:00 97.2 92 20 122/59 (80) 96 11/21/17 20:00 97.9 112 20 137/76 (96) 98 11/21/17 16:00 98.0 96 19 158/81 (106) 98 11/21/17 12:00 98.1 99 20 114/74 (87) 95 11/22/17 11/22/17 11/22/17 07:00 15:00 23:00 Intake Total 780 ml Output Total 1800 ml Balance -1020 ml Exam: resting comfortably L BKA minimal edema Assessment and Plan Plan POD#4 d/c today Discharge Planning will discharge today [phone] Ruperto Quintanilla MD Nov 22, 2017 09:08
--- NOTE | 2017-11-22 09:10 | PD.VS.DC ---
cc: Ruperto Quintanilla MD Discharge Summary Admission Date: Nov 18, 2017 at 10:44 Discharge Date: Nov 22, 2017 Admission Diagnosis: (1) PAD (peripheral artery disease) Discharge Diagnosis: (1) PAD (peripheral artery disease) ICD Codes: I73.9 - Peripheral vascular disease, unspecified (2) Status post below knee amputation of left lower extremity ICD Codes: Z89.512 - Acquired absence of left leg below knee Diagnosis: Principal Brief History from admission 58 yo male with L LE stents and then bypass, failed. no bypass options. Ready for BKA Procedure(s): L BKA Significant Findings Laboratory Tests Test 11/19/17 09:49 11/19/17 10:13 Random Glucose 130 MG/DL (74-106) Estimat Glomerular Filtration Rate 79 ML/MIN (>89) White Blood Count 15.7 TH/MM3 (4.0-11.0) Red Blood Count 3.64 MIL/MM3 (4.50-5.90) Hemoglobin 11.5 GM/DL (13.0-17.0) Hematocrit 33.5 % (39.0-51.0) Hospital Course: The patient tolerated the procedure well. Post-operative pain controlled at time of discharge with po meds. BKA stump c/d/i, mild edema Ready for d/c POD#4. Discharge Condition: Good Discharge Disposition: Discharge Home Any questions or concerns: Call [facility] at [facility] [phone] Ruperto Quintanilla MD Nov 22, 2017 09:10
[2017-11-22] MEDS: GABAPENTIN 400 MG CAP PO SCH (09:13)
[2017-11-22] MEDS: DOCUSATE SODIUM 50 MG/SENNA 8.6 MG TAB PO SCH (09:13)
[2017-11-22] MEDS: CLOPIDOGREL 75 MG TAB PO SCH (09:13)
[2017-11-22] MEDS: PANTOPRAZOLE SOD 20 MG DELAYED RELEASE TAB PO SCH (09:15)
[2017-11-22] MEDS: ASPIRIN 81 MG CHEW TAB PO SCH (09:15)
[2017-11-22] MEDS: METOPROLOL TARTRATE 50 MG TAB PO SCH (09:15)
[2017-11-22] MEDS: CILOSTAZOL 50 MG TAB PO SCH (09:16)
[2017-11-22] MEDS: FAMOTIDINE 20 MG TAB PO SCH (09:16)
== END 2017-11-22 10:01 | disposition home or self-care (01) | DRG 241 ==
LOC: HSDI 10:44 → N07A 19:33
PROVIDERS: ADMIT Surgery; ATTEND Surgery
PROC: 0Y6J0Z1 Detachment at Left Lower Leg, High, Open Approach (ICD-10-PCS; principal; 2017-11-18 15:32)
DX: I73.9 Peripheral vascular disease, unspecified (principal); I10 Essential (primary) hypertension; J44.9 Chronic obstructive pulmonary disease, unspecified; G47.33 Obstructive sleep apnea (adult) (pediatric); Z87.442 Personal history of urinary calculi; Z87.891 Personal history of nicotine dependence
CPT/HCPCS: 80048; 85025; 85027; 85610; 86850; 86900; 86901; 88307; 88311; 93005; J0131; J0690; J1100; J1170; J1650; J2060; J2270; J2370; J2405; J3010; J7120